=== PATIENT | female | born 1980 | race Caucasian/White ===

== ENCOUNTER → 2020-02-12 13:21 | Outpatient (CLI) | payer OTHER, SELFPAY ==
--- NOTE | ~2020-02-12 | MM_ITS ---
EXAMINATION: MM screening jacqueline BI w roxana HISTORY: Screening mammogram TECHNIQUE: Craniocaudal and mediolateral oblique 3-D tomosynthesis images were obtained and synthetic 2-D images were generated. CAD analysis was submitted and interpreted. COMPARISON: No prior mammogram is available for comparison at this institution. BREAST PARENCHYMAL COMPOSITION: There are scattered areas of fibroglandular density. FINDINGS: Mild fibroglandular asymmetry. There is no evidence of suspicious mass, calcification, or a rchitectural distortion to suggest malignancy in either breast. There has been no suspicious interval change. IMPRESSION: 1. No mammographic evidence of malignancy. 2. Recommend routine screening mammography in one year. BI-RADS Category 2: Benign finding(s). Reviewed, dictated and finalized at location A.
== END ==
PROVIDERS: PCP Nurse Practitioner Family; Visit Provider Obstetrics & Gynecology
DX: Z12.31 Encounter for screening mammogram for malignant neoplasm of breast (principal)
CPT/HCPCS: 77063; 77067

== ENCOUNTER → 2021-02-17 10:28 | Outpatient (CLI) | payer OTHER, SELFPAY ==
--- NOTE | ~2021-02-17 | MM_ITS ---
EXAMINATION: MM screening jacqueline BI w roxana HISTORY: Screening TECHNIQUE: Craniocaudal and mediolateral oblique 3-D tomosynthesis images were obtained and synthetic 2-D images were generated. CAD analysis was submitted and interpreted. COMPARISON: 02/12/2020 BREAST PARENCHYMAL COMPOSITION: There are scattered areas of fibroglandular density. FINDINGS: There are developing asymmetries medial aspect of the left breast on CC view. The right harika ast is stable without evidence for malignancy. IMPRESSION: 1. Developing left breast asymmetries medially on CC view. 2. Additional mammographic views and possible breast ultrasound are recommended. BI-RADS Category 0: Incomplete: Needs additional imaging evaluation. Reviewed, dictated and finalized at location A. IMPRESSION: 1. Developing left breast asymmetries medially on CC view. 2. Additional mammographic views and possible breast ultrasound are recommended . BI-RADS Category 0: Incomplete: Needs additional imaging evaluation.
== END ==
PROVIDERS: PCP Nurse Practitioner Family; Visit Provider Nurse Practitioner Obstetrics & Gynecology
DX: Z12.31 Encounter for screening mammogram for malignant neoplasm of breast (principal); R92.8 Other abnormal and inconclusive findings on diagnostic imaging of breast
CPT/HCPCS: 77063; 77067

== ENCOUNTER → 2021-03-24 09:56 | Outpatient (CLI) | payer OTHER, SELFPAY ==
--- NOTE | ~2021-03-24 | MMUS_ITS ---
EXAMINATION: MM diagnostic jacqueline LT w roxana, US breast LT limited HISTORY: Follow-up left breast asymmetry TECHNIQUE: Additional 3-D tomosynthesis images of the left breast were performed and synthetic 2-D im ages were generated. CAD analysis was submitted and interpreted. High resolution left breast ultrasou nd was performed. COMPARISON: Comparison to multiple prior studies sequentially, with oldest reviewed study dated 06/2020. BREAST PARENCHYMAL COMPOSITION: Breast composed of scattered areas of fibroglandular density. FINDINGS: MAMMOGRAPHIC FINDINGS: Focal asymmetry is less apparent with spot compression and mediolateral views. No discrete mass, arch itectural distortion or suspicious calcifications. ULTRASOUND: Limited left breast ultrasound: Normal heterogeneous echotexture without focal solid or cystic mass. IMPRESSION: 1. No evidence for malignancy in the left breast. 2. Routine yearly screening mammogram and regular clinical breast examination are recommended. BI-RADS Category 1: Negative Reviewed, dictated and finalized at location A. IMPRESSION: 1. No evidence for malignancy in the left breast. 2. Routine yearly screening mammogram and regular clinical breast examination a re recommended. BI-RADS Category 1: Negative
== END ==
PROVIDERS: PCP Nurse Practitioner Family; Visit Provider Nurse Practitioner Obstetrics & Gynecology
DX: R92.8 Other abnormal and inconclusive findings on diagnostic imaging of breast (principal)
CPT/HCPCS: 76642; 77061; 77065; G0279

== ENCOUNTER 2021-03-24 14:49 | Outpatient (CLI) | payer OTHER, SELFPAY | END 2021-03-24 14:50 | disposition home or self-care (01) | LOC: ANHSURGERY 14:52 | PROVIDERS: PCP Nurse Practitioner Family; Visit Provider Obstetrics & Gynecology | DX: Z01.812 Encounter for preprocedural laboratory examination (principal); N92.0 Excessive and frequent menstruation with regular cycle | CPT/HCPCS: 36415; 86850; 86900; 86901 ==

== ENCOUNTER → 2021-03-27 01:33 | Outpatient (CLI) | payer OTHER, SELFPAY ==
[2021-03-27 19:56] LABS: SARS-CoV-2 RNA PCR Negative
== END ==
PROVIDERS: PCP Nurse Practitioner Family; Visit Provider Obstetrics & Gynecology
DX: Z01.812 Encounter for preprocedural laboratory examination (principal); Z20.822 Contact with and (suspected) exposure to COVID-19
CPT/HCPCS: C9803; U0003; U0005

== ENCOUNTER 2021-03-31 01:33 | Day surgery (SDC) | payer OTHER, SELFPAY ==
[2021-03-22 16:56] VITALS: BMI 25.1
[2021-03-31] VITALS (11 sets, daily range): BP systolic 97–110; BP diastolic 57–73; PULSE 52–82; RESP 12–18; TEMP 36.3–37; O2SAT 93–100
[2021-03-31] MEDS: ACETAMINOPHEN 500 MG TABLET 1000 MG PO (07:09)
[2021-03-31] MEDS: LACTATED RINGERS 1,000 ML 30 ML IV CONT ×2 (07:10→10:17)
[2021-03-31] MEDS: KETOROLAC 15 MG/ML VIAL (*BKC) IV PUSH (07:15)
--- NOTE | 2021-03-31 08:06 | WPDANESEPPF ---
Anes - Initial Pre Proc Eval Procedure: Operation Date: 03/31/21 08:30 Proposed Procedures p Laparoscopic Assisted Hysterectomy With Bilateral Salpingectomy - Juliet Mcdaniels MD Date/Time: 03/31/21 08:06 Surgeon: Juliet Mcdaniels MD Pre Op Diagnosis: menorrhaghia Patient Data Age: 40 Gender: F Height: 1.78 m Weight: 79.5 kg Allergies Allergy/AdvReac Type Severity Reaction Status Date / Time cinnamon AdvReac Mild THROAT Unverified 03/31/21 06:41 ITCHING Home Medications Medication Instructions Recorded Confirmed Type aspirin 81 mg PO DAILY 03/22/21 03/31/21 History Patient hx anesthesia problems: none Family hx anesthesia problems: none [facility] Past Medical History Medical History (Updated 03/31/21 @ 08:03 by Boni Rojas DO) Degenerative disc disease Surgical History Surgical History (Updated 03/31/21 @ 08:03 by Boni Rojas DO) History of appendectomy Social History Social History Smoking status: Never smoker Alcohol intake: current Substance use: never Living arrangements: with family Spiritual care concerns: No Anes - Eval Final PreProcedure Day of Procedure 03/31/21 08:06 Patient weight: overweight Heart: regular rate and rhythm Lungs: clear to auscultation and normal air movement Airway: Mallampati scale class II Neurological: alert and oriented Last oral intake: >/= 8 hours ASA classification: II Emergent: no Anesthetic plan: proceed Anesthesia type and monitoring: general ETT and standard monitoring Informed Consent: The patient's anesthetic plan and its attendant risks and benefits were discussed with the patient/family/POA. Questions were solicited and answers provided to the satisfaction of the patient/family/POA.
--- NOTE | 2021-03-31 08:07 | WPDHPUPDATE1 ---
History and Physical Update Update Date/Time: 03/31/21 08:07 History and Physical has been reviewed, including an updated exam of the patient. There are NO changes in the patient's condition. Risks, benefits, and alternatives have been discussed and questions answered. Patient agrees to proceed with procedure.
[2021-03-31] MEDS: ceFAZolin 2 GM/D5W 50 ML 2 GM/50 ML BAG IVPB (08:27)
--- NOTE | 2021-03-31 10:28 | PM.PROC ---
Procedure Note - Detailed Date of procedure: 03/31/21 Pre-op diagnosis: menorrhaghia Post-op diagnosis: same Procedure performed: Total laparoscopic hysterectomy and Bilateral Salpingectomy. Description of procedure: The patient was taken to the operating room. She was prepped and draped in the dorsal lithotomy position. A speculum was placed in the vagina. The cervix was grasped with a tenaculum. Stay sutures were placed at 3 and 9:00 a.m. of 0 Vicryl. The stay sutures were brought through the Yulia up. The ROSA manipulator was placed in the vagina with a fixed Yulia cup. The cup was then pushed up around the cervix. The sutures were tied to the handle of the ROSA manipulator. A 5 mm incision was made on the abdominal skin of the left upper quadrant using a scalpel. A 5 mm trocar was inserted into the intra-abdominal cavity under direct visualization the scope. Pneumoperitoneum was achieved. An 11 mm incision was made in the left lower quadrant of the abdomen with a scalpel. A 11 mm trocar was inserted into the intra-abdominal cavity under direct visualization the scope. A 5 mm periumbilical incision was made. A 5 mm scope was placed into the intra-abdominal cavity under direct visualization of the scope. The bilateral fallopian tubes were removed. The paratubal tissue in the area of the uterus was grasped with the LigaSure cautery and transected after being cauterized. The paratubal tissue from the ovary to the uterine cornu was cauterized and transected with LigaSure cautery. This was all done in a bilateral fashion. The tube was transected at the area of the uterine cornua and the tubes was removed through the 11 mm trocar site. The suspensory ligament of the ovary was cauterized and transected with ligature cautery in a bilateral fashion. The fallopian tubes were cauterized and transected in a bilateral fashion with LigaSure cautery. The round ligaments were cauterized and transected in bilateral fashion with LigaSure cautery. The round ligaments were cauterized and transected bilaterally with LigaSure cautery. The broad ligaments were cauterized and transected along the lateral aspects of the uterus down the level of the uterine arteries. A bladder flap was created using sharp and blunt dissection. The ureters were dissected out bilaterally down to the level of the uterine arteries. They could be visualized from the pelvic brim down the uterine arteries. Staying very close to the cervix the parametrium was cauterized transected in a stepwise fashion down to the level of the Yulia cup. The Bladder flap was moved distally over the Yulia cup using sharp and blunt dissection. The impression of the entire cup was visualized around the cervix. An incision was made with unipolar cautery down under the Yulia cup creating a colpotomy incision all the way around the cervix. The uterus was taken out through the vagina. A pneumo occluder was placed in the vagina. The vagina was closed with 0 V lock suture in a running fashion. The ureters were identified again and found to be intact to the level of the uterine arteries. The pelvis was irrigated with a copious amount of antibiotic irrigation. The pneumoperitoneum was reduced. The trocars were removed. The skin was closed subcuticular 4 Monocryl covered with Dermabond. The pneumo occluder was removed from the vagina. The vagina was irrigated with Betadine. The patient tolerated the procedure well. She was taken to the recovery room in stable condition. Sponge lap and needle counts were correct x2. Anesthesia: GETA Surgeon: Juliet Mcdaniels MD Estimated blood loss (mL): 200 Drains: No Packing: No Pathology: yes Complications: No immediate complications Condition: stable Disposition: PACU Findings: Enlarged boggy uterus, cystic left ovary, normal-appearing right ovary, normal-appearing fallopian to be
[2021-03-31] MEDS: fentaNYL CITRATE INJ (*CRX) 100 MCG/2 ML VIAL 25 MCG IV PUSH ×2 (11:10→11:14)
--- NOTE | 2021-03-31 11:55 | PC.NURSE ---
Pt arrived on unit via bed accompanied by spouse and taken PT introductions made and plan of care discussed per post op ground layer surgery, pain management, daily care activities and pending discharge to home. PT oriented to room 276 and surrounding area. PT received instructions and education via one to one discussion and demonstration. PT and spouse both recipients of such instructions. No barriers to learning identified. PT verbalized understanding of such care.
[2021-03-31] MEDS: KETOROLAC 30 MG/ML VIAL (*BKC) IV PUSH (12:23)
[2021-03-31] MEDS: DEXTROSE 5%/0.45% SOD CHL 1,000 ML 125 ML IV CONT (12:24)
[2021-03-31] MEDS: ACETAMINOPHEN 500 MG TABLET 1000 MG (16:15)
[2021-03-31] MEDS: SIMETHICONE 80 MG TAB.CHEW PO ×2 (19:35→22:10)
[2021-03-31] MEDS: ACETAMINOPHEN 325 MG TABLET 650 MG PO (22:10)
[2021-04-01 04:50] VITALS: BP 104/72; PULSE 73; RESP 16; TEMP 37
[2021-04-01] MEDS: ACETAMINOPHEN 325 MG TABLET 650 MG PO (04:50)
[2021-04-01] MEDS: SIMETHICONE 80 MG TAB.CHEW PO ×2 (04:50→10:00)
--- NOTE | 2021-04-01 07:00 | PC.NURSE ---
PT introductions made and plan of care discussed per post op director fundraising surgery, pain management, daily care activities and pending discharge to home. PT oriented to room 276 and surrounding area. PT received instructions and education via one to one discussion and demonstration. PT and spouse both recipients of such instructions. No barriers to learning identified. PT verbalized understanding of such care
[2021-04-01 07:30] VITALS: BP 108/69; PULSE 76; RESP 16; TEMP 36.9; O2SAT 100
--- NOTE | 2021-04-01 07:49 | PM.GYNPNOP ---
ACCOUNT MAINTENANCE REPRESENTATIVE - A/P Postoperative Procedures: Procedures Operation Date: 03/31/21 08:30 Actual Procedure Side Surgeon p Laparoscopic Assisted Hysterectomy With Bilateral Salpingectomy Bilateral RMercedes Mcdaniels MD Postoperative day: 1 Postoperative status: doing well and other (Tollerating Regular Diet) Postoperative plan: routine post-op care and discharge Time Spent With Patient Time: Total time spent is greater than 50% in coordination of care (as documented) at patient's floor/unit and/or counseling patient: Time with patient: 15 - 25 minutes ACCOUNT MAINTENANCE REPRESENTATIVE- PN:Subj Post-Op Subjective Date/time seen: 04/01/21 07:50 Subjective: patient reports feeling better, pain is well controlled and patient is tolerating oral intake Exam Const: General: cooperative, healthy appearing, comfortable and no acute distress Resp: Auscultation: no crackles, no rales, no rhonchi and no wheezes Cardio: Rhythm: regular rhythm Heart sounds: no click and no murmurs GI: Inspection: non-distended Auscultation: normal bowel sounds Other: Incisions - CDI Extrem: General: normal to inspection, no pedal edema and no calf tenderness ACCOUNT MAINTENANCE REPRESENTATIVE - PN: Obj Data Vital Signs Vital Signs: Vital Signs - 24 hr 03/31/21 10:17 03/31/21 10:30 03/31/21 10:45 Temperature 97.4 F L Pulse Rate 73 57 L 55 L Respiratory Rate 12 14 14 Blood Pressure 109/63 110/68 107/68 Pulse Oximetry 100 100 100 03/31/21 11:00 03/31/21 11:15 03/31/21 11:30 Temperature Pulse Rate 57 L 52 L 53 L Respiratory Rate 14 14 14 Blood Pressure 103/73 102/70 97/57 L Pulse Oximetry 99 93 96 03/31/21 11:45 03/31/21 12:00 03/31/21 16:15 Temperature 97.9 F 98 F Pulse Rate 59 L 53 L 68 Respiratory Rate 14 16 16 Blood Pressure 101/65 109/64 110/68 Pulse Oximetry 99 100 100 03/31/21 19:32 04/01/21 04:50 Temperature 97.9 F 98.6 F Pulse Rate 52 L 73 Respiratory Rate 16 16 Blood Pressure 101/58 L 104/72 Pulse Oximetry Intake/Output Intake/Output: Intake & Output 03/29/21 03/30/21 03/31/21 04/01/21 23:59 23:59 23:59 23:59 Intake Total 2850 Output Total 1550 Balance 1300 Meds/Results Medications: Active Medications Generic Name Dose Route Start Last Admin Trade Name Freq PRN Reason Stop Dose Admin Acetaminophen 650 mg 03/31/21 22:06 04/01/21 04:50 Acetaminophen 325 Mg Tablet PO 650 mg Q6H PRN Administration Headache Hydrocodone Bitart/Acetaminophen 1 tab 03/31/21 11:51 Hydrocodone/Acetaminophen (*Crx) 5-325 Mg Tablet PO Q3H PRN Pain Rated 5 or Less Hydrocodone Bitart/Acetaminophen 1 tab 03/31/21 11:51 Hydrocodone/Acetaminophen (*Crx) 10-325 Mg Tablet PO Q3H PRN Pain Rated 6 or Greater Ibuprofen 600 mg 03/31/21 11:51 Ibuprofen 600 Mg Tablet PO Q6H PRN Cramping Ketorolac Tromethamine 30 mg 03/31/21 11:51 03/31/21 12:23 Ketorolac 30 Mg/Ml Vial (*Bkc) IV PUSH 04/05/21 11:52 30 mg Q6H PRN Administration Pain Rated 4-6 Naloxone HCl 0.1 mg 03/31/21 11:51 Naloxone Hcl 0.4 Mg/Ml Vial IV PUSH Q2M PRN Respiratory rate less than 10 Ondansetron HCl 4 mg 03/31/21 11:51 Ondansetron Inj 4 Mg/2 Ml Vial IV PUSH Q6H PRN Nausea And Vomiting Simethicone 80 mg 03/31/21 22:18 04/01/21 04:50 Simethicone 80 Mg Tab.Chew PO 80 mg Q2HR PRN Administration Gas Discomfort
[2021-04-01 10:00] VITALS: PULSE 76; RESP 16; O2SAT 100
--- NOTE | 2021-04-01 10:00 | PC.NURSE ---
PT received discharge instructions per protocol and verbalized understanding of such care.
[2021-04-01] MEDS: IBUPROFEN 600 MG TABLET PO (10:03)
--- NOTE | 2021-04-01 10:25 | PC.NURSE ---
PT discharged to home ambulatory accompanied by spouse to waiting car. Follow up appointments confirmed.
--- NOTE | 2021-04-01 13:40 | WPDANESPN ---
Anes - Prog Note Post-Op Date/Time: 04/01/21 13:40 Cardiovascular status: normal Respiratory status: normal Airway patency: baseline Mental status: baseline Post-Op hydration status: normal Vital Signs: Last Vital Signs Temp 36.9 C 04/01/21 07:30 Pulse 76 04/01/21 10:00 Resp 16 04/01/21 10:00 BP 108/69 04/01/21 07:30 Pulse Ox 100 04/01/21 10:00 Pain Score (VAS): 0/10. Patient resting in bed at time of assessment, appears comfortable. Support person at bedside. Nausea with relief with prn meds. I/O: Intake & Output 03/31/21 04/01/21 04/01/21 23:59 07:59 15:59 Intake Total 2000 Output Total 1550 Balance 450 Post-procedural complaints: none and nausea (mild nausea with relief with prn meds.) Patient Feedback: Patient satisfied with anesthetic care.
== END 2021-04-01 10:25 | disposition home or self-care (01) ==
LOC: ANHSURGERY 06:21 → ANHOB2 11:52
PROVIDERS: PCP Nurse Practitioner Family; Visit Provider Obstetrics & Gynecology
PROC: 0UT9FZZ Resection of Uterus, Via Natural or Artificial Opening With Percutaneous Endoscopic Assistance (ICD-10-PCS; CPT 58571; principal; 2021-03-31 08:30)
DX: N92.0 Excessive and frequent menstruation with regular cycle (principal); N73.6 Female pelvic peritoneal adhesions (postinfective); N83.02 Follicular cyst of left ovary; N83.8 Other noninflammatory disorders of ovary, fallopian tube and broad ligament
CPT/HCPCS: 58571; 58662; 88305; 88307; 99199; A9270; C9803; J0690; J1100; J1170; J1885; J2250; J2405; J2704; J2710; J3010; J7030; J7120; U0003; U0005

== ENCOUNTER → 2022-05-06 13:49 | Outpatient (CLI) | payer OTHER, SELFPAY ==
--- NOTE | ~2022-05-06 | MM_ITS ---
EXAMINATION: MM screening jacqueline BI w roxana HISTORY: Screening TECHNIQUE: Craniocaudal and mediolateral oblique 3-D tomosynthesis images were obtained and synthetic 2-D images were generated. CAD analysis was submitted and interpreted. COMPARISON: Comparison to multiple prior studies sequentially, with oldest reviewed study dated 06/2020. BREAST PARENCHYMAL COMPOSITION: Breast composed of scattered areas of fibroglandular density FINDINGS: There is no evidence of suspicious mass, calcification, or architectural distortion to sugg est malignancy in either breast. There has been no suspicious interval change. IMPRESSION: 1. No mammographic evidence of malignancy. 2. Recommend routine screening mammography in one year. BI-RADS Category 1: Negative Reviewed, dictated and finalized at location A.
== END ==
PROVIDERS: PCP Nurse Practitioner Family; Visit Provider Nurse Practitioner Family
DX: Z12.31 Encounter for screening mammogram for malignant neoplasm of breast (principal)
CPT/HCPCS: 77063; 77067

== ENCOUNTER → 2023-01-20 14:11 | Outpatient (CLI) | payer OTHER, SELFPAY ==
--- NOTE | ~2023-01-20 | CT_ITS ---
EXAMINATION: CT abdomen pelvis wo con DATE: 01/20/2023 14:34 INDICATION: Right inguinal hernia TECHNIQUE: Computed tomography (CT) of the abdomen and pelvis was performed without intravenous contr ast. The dose-length product was 656.40 mGy-cm. Automated exposure control and iterative reconstructi on technique were employed. COMPARISON: None. FINDINGS: Lung bases are unremarkable. Heart size normal. No significant pleural or pericardial effus ion. The liver, spleen, pancreas, adrenal glands and kidneys are unremarkable. Nonobstructive bowel g as pattern. Gallbladder is contracted. No significant vascular abnormality. No lymphadenopathy. Tiny fat-containing umbilical hernia. Mild osteoarthritis of the hips. There is moderate lumbar spondylosi s. IMPRESSION: 1. No acute abdominal abnormality. Reviewed, dictated and finalized at location A.
== END ==
PROVIDERS: PCP Nurse Practitioner Family; Visit Provider Nurse Practitioner Family
DX: K40.90 Unilateral inguinal hernia, without obstruction or gangrene, not specified as recurrent (principal)
CPT/HCPCS: 74176

== ENCOUNTER 2024-05-10 12:33 | Outpatient (CLI) | payer OTHER, SELFPAY ==
--- NOTE | ~2024-05-10 | MM_ITS ---
EXAMINATION: MM screening jacqueline BI w roxana HISTORY: Screening mammogram TECHNIQUE: Craniocaudal and mediolateral oblique 3-D tomosynthesis images were obtained and synthetic 2-D images were generated. CAD analysis was submitted and interpreted. COMPARISON: 05/06/2022, 02/17/2021 BREAST PARENCHYMAL COMPOSITION:Not Dense. The breasts are almost entirely fatty FINDINGS: No suspicious mass, calcification, or architectural distortion are identified in either harika ast to suggest malignancy. There has been no suspicious interval change. IMPRESSION: No mammographic evidence of malignancy. Recommend routine screening mammography in one year. BI-RADS Category 1: Negative Reviewed, dictated and finalized at location .
== END 2024-05-10 12:34 ==
LOC: MICIMG 12:33
PROVIDERS: PCP Nurse Practitioner Family; Visit Provider Nurse Practitioner Family
DX: Z12.31 Encounter for screening mammogram for malignant neoplasm of breast (principal)
CPT/HCPCS: 77063; 77067

== ENCOUNTER 2024-11-22 14:07 | Outpatient (CLI) | payer OTHER, SELFPAY ==
--- NOTE | ~2024-11-22 | MR_ITS ---
EXAMINATION: MR elbow RT wo con DATE: 11/22/2024 14:48 INDICATION: Right elbow lateral epicondylitis TECHNIQUE: Magnetic resonance imaging (MRI) of the right elbow was performed without intravenous cont rast. Sequences included coronal, axial, and sagittal PD-weighted FS FSE and coronal, axial, and sagi ttal PD-weighted FSE. COMPARISON: None FINDINGS: Osseous/other: Normal alignment. Normal marrow signal with no marrow edema, fracture, osteochondral lesion or abnor mal marrow replacing process. Tendons: Triceps, biceps brachii and brachialis tendons are normal. Common flexor tendon wad is normal. Mild to moderate tendinopathy without tear at the common extensor tendon wad. Ligaments: The medial and lateral collateral ligament complexes are normal. Cubital tunnel: Cubital tunnel is unremarkable with normal signal and caliber of the ulnar nerve. Fluid: Physiologic amount of fluid the elbow joint. IMPRESSION: 1. Mild to moderate tendinopathy without tear at the common extensor tendon wad. Reviewed, dictated and finalized at location B. RIGHT CLERK IMPRESSION: 1. Mild to moderate tendinopathy without tear at the common extensor tendon wad .
== END 2024-11-22 14:08 | disposition home or self-care (01) ==
LOC: MICIMG 14:10
PROVIDERS: PCP Nurse Practitioner Family; Visit Provider Physician Assistant Surgical
DX: M67.823 Other specified disorders of tendon, right elbow (principal); M77.11 Lateral epicondylitis, right elbow
CPT/HCPCS: 73221

== ENCOUNTER 2025-07-28 00:28 | Day surgery (SDC) | payer OTHER, SELFPAY ==
--- OUTSIDE RECORDS SUMMARY | 2010-07-01 19:00 | XMS_ITS | Continuity of Care Document ---
Author Organization [facility] Address [address] [address] [address] [place] [address] Phone Care Team Providers Care Director Of Category Management Name Role Phone Antonio OD, Jama Unavailable Unavailable Procedures Procedure Date Contact Lens Hydrophilic, Spherical Medical Tax Contact Lens Check Eye Exam & Treatment Refraction Eye Exam & Treatment Refraction CL Replacement - Vistakon Disp W/BW Soft TBS Medical Office/outpatient Visit, Est Visual Field Examination(s) CL Replacement - Vistakon Disp W/BW Soft TBS Nuji Eye Exam & Treatment CL Replacement - Vistakon Disp W/BW Soft TBS Medical Office/outpatient Visit, Est No Charge Contact Lens Check CL Replacement - Vistakon Disp W/BW Soft Hometica No Charge Contact Lens Check Office/outpatient Visit, Est Fundus Photography W/ Report Vision Svcs Frames Purchases SV Plastic Sph Yeaddiss To +/- 4 7 TBS - Medical Eye Exam, New Patient Refraction Advance Directives Directive Yes / No Effective Date File Name No Information Encounters Encounter Description Practice Location Reason(s) For Visit Diagnoses Date Provider Providers Copied on Encounter [facility], [id number] [place] [address] [address], [place], [place], [id number], [place] tel:[phone] [facility] No Information 2 7-201 0 Antonio OD Jama. [address] [facility] [facility] [address] , [address], [place], [address], [place]. tel:[phone] Referring Provider: Jama Antonio OD A, [address], [place], [place], [facility]. tel:[phone] [facility], [address] [place] [address] [address], [place], [place], [id number], [place] tel:[phone] [facility] No Information 9-201 0 Antonio OD Jama. [address] [facility] [address], [address], [place], [place], [facility], [place]. tel:[phone] [facility], [address] [place] [address] [address], [place], [place], [id number], [place] tel:[phone] [facility] No Information 5-201 0 Antonio OD Jama. [address] [facility] [address], [address], [place], [address], [place]. tel:[phone] [facility], [address] [place] [address] [address], [place], [place], [address], [place] tel:[phone] [facility] No Information May-0 1-200 9 Antonio OD Jama. [address], [address], [place], [place], [facility], [place]. tel:[phone] Office/outpat ient Visit, Est [facility], [address] [place] [address] [address], [place], [place], [id number], [place] tel:[phone] [facility] No Information Feb-2 9-200 9 Doisy Edward. [address] [facility] [address], [address], [place], [facility], [place]. tel:[phone] [facility], [address], [place], [place], [id number], [place] tel:[phone] [facility] No Information Oct-2 8-200 8 Milagro Carrasquillo. [address] [facility] [address] , [address], [place], [facility], [place]. tel:[phone] Referring Provider: Foreign Haynes, [address], [place], [facility]. tel:[phone] 1946 [facility], [address], [place], [place], [address], [place] tel:[phone] [facility] No Information Aug-2 9-200 8 Antonio OD Jama. [address] [facility] [address], [address], [place], [facility], [place]. tel:[phone] [facility], [address], [place], [place], [address], [place] tel:[phone] [facility] No Information Mar-0 8-200 8 Antonio OD Jama. [address], [address], [place], [facility], [place]. tel:[phone] Office/outpat ient Visit, Est [facility], [address], [place], [place], [address], [place] tel:[phone] [facility] No Information Feb-1 3-200 8 Milagro Carrasquillo. [address] , [address], [place], [facility], [place]. tel:[phone] [facility], [address], [place], [place], [address], [place] tel:[phone] [facility] No Information Oct-1 1-200 7 Antonio OD Jama. [address], [address], [place], [facility], [place]. tel:[phone] [facility], [address], [place], [place], [address], [place] tel:[phone] [facility] No Information 3-200 7 Antonio OD Jama. [address] [facility] [address] , [address], [place], [facility], [place]. tel:[phone] Office/outpat ient Visit, [facility], [address], [place], [place], [address], [place] tel:[phone] [facility] No Information 6-200 7 Antonio OD Jama. [address] [facility] [address] , [address], [place], [facility], [place]. tel:[phone] Referring Provider: Jama Antonio OD A, [address] [place], [place] [address], [place], [facility]. tel:[phone] [facility], [address], [place], [place], [address], [place] tel:[phone] [facility] No Information 200 [address] [employer] . [address] [facility], [address], [place], [place], [address], [place]. tel:[phone] Referring Provider: Foreign Haynes, [address] [place], [place] [address], [place], [address]. tel:[phone] g Provider: Oksana Saravia, [address] [facility], [place], [address]. tel:[phone] [facility], [address], [place], [place], [address], [place] tel:[phone] [facility] No Information 200 7 Milagro Carrasquillo. [facility] , [address], [place], [place], [facility], [place]. tel:[phone] Family History Family Member Type Diagnosis Age At Onset No Information Payers Payer name Insurance type Covered alliance party ID Earle burns(s) [facility] [id number] Social History Type Description Quantity Date Captured Comments Sex Female Smoking Status No Information Chief Complaint And Reason For Visit No Information Reason For Referral Reason For Referral No Information History Of Present Illness Encounter Date Complaint History Of Prese nt Illness No Information Functional Status Date Functional Assessmen t No Information Instructions Date Instruction Additional Infor mation No Information Assessments Type Assessment Date No Information Patient Care Teams Name Effective Dates (start - stop) Status Members No Information
[2025-07-15 09:47] VITALS: BMI 27.1
[2025-07-28 06:45] VITALS: BP 120/81; PULSE 93; RESP 14; TEMP 36.1; O2SAT 98
[2025-07-28] MEDS: LACTATED RINGERS 1,000 ML 150 ML IV CONT (06:54)
--- NOTE | 2025-07-28 07:03 | WPDANESEPPF ---
Anes - Initial Pre Proc Eval Procedure: Operation Date: 07/28/25 08:00 Proposed Procedures p Screening Colonoscopy - Chas Pillai MD Date/Time: 07/28/25 07:03 Surgeon: Chas Pillai MD Pre Op Diagnosis: Screening Patient Data Age: 44 Gender: F Height: 1.78 m Weight: 85.7 kg Last Vital Signs Temp 36.1 C L 07/28/25 06:45 Pulse 93 07/28/25 06:45 Resp 14 07/28/25 06:45 BP 120/81 07/28/25 06:45 Pulse Ox 98 07/28/25 06:45 O2 Del Method Room Air 07/28/25 06:45 Allergies Allergy/AdvReac Type Severity Reaction Status Date / Time cinnamon AdvReac Mild THROAT Verified 07/28/25 06:44 ITCHING Home Medications ?Medication ?Instructions ?Recorded ?Confirmed ?Type aspirin 81 mg tablet 81 mg PO DAILY 03/22/21 07/28/25 History Patient hx anesthesia problems: none Family hx anesthesia problems: none Results Review: All pre-operative results and documents have been reviewed as part of the pre-operative evaluation. [facility] Past Medical History Medical History Anxiety Degenerative disc disease Surgical History Surgical History History of surgery (~2002) Hardware removal H/O knee surgery (~2002) ACL History of hysterectomy (~2020) History of appendectomy (~2002) Family History Family History Father Diabetes mellitus Heart disease Mother Hypertension Heart disease Cervical cancer Grandparent Diabetes mellitus Social History Social History Social History: 04/25/25 Declined [facility] Smoking status: Never smoker Alcohol intake: current Alcohol use details: weekend social 1-4 Substance use: never Substance use type: does not use Lack of Transportation: No Lack of Food: Never True Current Housing: I Have Housing Concerned About Future Housing: No Difficulty Paying Gas/Electric Bills: No Difficulty Paying for Meds: No Currently Unemployed: No Education: Associate Degree Difficulty w/ Childcare or Family Care: No Living arrangements: with family 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 Informed Consent: The patient's anesthetic plan and its attendant risks and benefits were discussed with the patient/family/POA. Questions were solicited and answers provided to the satisfaction of the patient/family/POA.
--- NOTE | 2025-07-28 07:50 | PM.HPGS ---
History of Present Illness History of Present Illness Consent: Risks, benefits, and alternatives have been discussed and questions answered. Patient agrees to proceed with procedure. Chief complaint: Screening Narrative: Susana Diehl is a 44 year old female here for first screening colonoscopy Review of Systems Review of Systems: All systems reviewed & are unremarkable except as noted in HPI and below PMFSH Past Medical History Medical History (Updated 07/28/25 @ 07:53 by Chas Pillai MD) Colon cancer screening Anxiety Degenerative disc disease Surgical History Surgical History History of surgery (~2002) Hardware removal H/O knee surgery (~2002) ACL History of hysterectomy (~2020) History of appendectomy (~2002) Family History Family History Father Diabetes mellitus Heart disease Mother Hypertension Heart disease Cervical cancer Grandparent Diabetes mellitus Social History Social History Social History: 04/25/25 Declined [facility] Smoking status: Never smoker Alcohol intake: current Alcohol use details: weekend social 1-4 Substance use: never Substance use type: does not use Lack of Transportation: No Lack of Food: Never True Current Housing: I Have Housing Concerned About Future Housing: No Difficulty Paying Gas/Electric Bills: No Difficulty Paying for Meds: No Currently Unemployed: No Education: Associate Degree Difficulty w/ Childcare or Family Care: No Living arrangements: with family 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 Gender identity (if verbalized by the patient): Female Spiritual care concerns: No Meds Home Medications and Allergies Home Medications ?Medication ?Instructions ?Recorded ?Confirmed ?Type aspirin 81 mg tablet 81 mg PO DAILY 03/22/21 07/28/25 History Allergies Allergy/AdvReac Type Severity Reaction Status Date / Time cinnamon AdvReac Mild THROAT Verified 07/28/25 06:44 ITCHING Vital Signs Vital Signs - 24 hr 07/28/25 06:45 Temperature 96.9 F L Pulse Rate 93 Respiratory Rate 14 Blood Pressure 120/81 Pulse Oximetry 98 Oxygen Delivery Room Air Exam Const: General: comfortable and no acute distress HENMT: Face/Nose/Sinus: Normal nares present Eyes: General: appearance normal, both eyes and all related structures Neck: Neck: no JVD Resp: Auscultation: clear to auscultation bilaterally Cardio: Rate: regular rate Rhythm: regular rhythm GI: Inspection: non-distended GI Palp: Yes Soft to palpation Skin: General skin exam: normal color Neuro: General: gait normal Speech: normal speech Extrem: General: normal to inspection Psych: Mental Status: mental status grossly normal Assessment and Plan Assessment and plan (1) Colon cancer screening: Code(s): Z12.11 - Encounter for screening for malignant neoplasm of colon Status: Acute Assessment and Plan: colonoscopy
--- NOTE | 2025-07-28 08:05 | S_PTH ---
PATIENT: Susana Diehl LOC: [facility]#:[id number] AGE/SX: 44/F ROOM: RE07/28/[address]: Chas Pillai MD : 1980 BED: DIS: 07/28/2025 SPEC #: [id number] RECD: 07/28/25 10:15 STATUS: YANELY REVini #: [id number] ERICKA: 07/28/25 08:[address]: Chas Pillai DEPT: [facility] Surgical RECD BY: Marianna Durbin ENTERED: 07/28/25 10:15 SP TYPE: Surgical OTHR DR: Sayda Quinones, YOLIE Tissues: A - Colon Polypectomy Procedures: Hematoxylin and Eosin Stain Gross and Microscopic Level 4
[2025-07-28 08:06] VITALS: BP 115/65; PULSE 73; RESP 18; O2SAT 99
[2025-07-28 08:16] VITALS: BP 104/68; PULSE 65; RESP 18; O2SAT 100
[2025-07-28 08:26] VITALS: BP 117/69; PULSE 77; RESP 23; O2SAT 100
== END 2025-07-28 08:30 | disposition home or self-care (01) ==
PROVIDERS: PCP Nurse Practitioner Family; Referring Provider Nurse Practitioner Family; Visit Provider Internal Medicine Gastroenterology
PROC: 0DJD8ZZ Inspection of Lower Intestinal Tract, Via Natural or Artificial Opening Endoscopic (ICD-10-PCS; CPT 45378; principal; 2025-07-28 08:00)
DX: Z12.11 Encounter for screening for malignant neoplasm of colon (principal); D12.5 Benign neoplasm of sigmoid colon; K64.8 Other hemorrhoids
CPT/HCPCS: 45385; 88305; J2003; J2704; J7120